=== PATIENT | female | born 2000 | race Native Hawaiian/Other Pacific Islander ===

== ENCOUNTER 2020-04-05 20:17 | Emergency (ER) | payer OTHER ==
[~2020-04-05] VITALS: Ht 167.6 cm; Wt 68.0 kg
[2020-04-05 20:50] LABS: PLATELET COUNT 243 K/uL (152-353)
[2020-04-05 20:56] LABS: POTASSIUM 3.7 mmol/L (3.6-5.2)
[2020-04-05 22:14] VITALS: BP 109/57; TEMP 98.4
== END 2020-04-05 22:14 | disposition home or self-care (01) ==
LOC: ED 20:24
PROVIDERS: Family Medicine
DX: R51.9 Headache, unspecified (principal); R42 Dizziness and giddiness
CPT/HCPCS: 80053; 81000; 81025; 85027; 99283

== ENCOUNTER 2020-12-11 19:10 | Emergency (ER) | payer OTHER ==
[~2020-12-11] VITALS: Ht 167.6 cm; Wt 72.6 kg
[2020-12-11 21:35] VITALS: BP 115/51; TEMP 97.8
== END 2020-12-11 21:35 | disposition home or self-care (01) ==
LOC: ED 19:10
DX: O23.30 Infections of other parts of urinary tract in pregnancy, unspecified trimester (principal); N39.0 Urinary tract infection, site not specified; M79.18 Myalgia, other site; V47.5XXA Car driver injured in collision with fixed or stationary object in traffic accident, initial encounter; Y92.89 Other specified places as the place of occurrence of the external cause
CPT/HCPCS: 81000; 81025; 87077; 87086; 87088; 87186; 99283

== ENCOUNTER 2020-12-26 15:34 | Emergency (ER) | payer OTHER ==
[~2020-12-26] VITALS: Ht 165.1 cm; Wt 63.5 kg
[2020-12-26 15:39] VITALS: TEMP 98.7
[2020-12-26 16:07] LABS: PLATELET COUNT 248 K/uL (152-353)
[2020-12-26 16:13] LABS: POTASSIUM 3.8 mmol/L (3.6-5.2)
[2020-12-26 17:42] VITALS: BP 118/65
== END 2020-12-26 17:42 | disposition home or self-care (01) ==
LOC: ED 15:34
PROVIDERS: Emergency Medicine
DX: O03.6 Delayed or excessive hemorrhage following complete or unspecified spontaneous abortion (principal); V47.5XXA Car driver injured in collision with fixed or stationary object in traffic accident, initial encounter; Y92.89 Other specified places as the place of occurrence of the external cause
CPT/HCPCS: 80048; 84702; 85027; 85610; 85730; 99283